=== PATIENT | male | born 1970 | race Caucasian/White ===

== ENCOUNTER 2017-05-20 17:34 | Inpatient (IN) | payer SELFPAY ==
[~2017-05-20] VITALS: Ht 177.8 cm; Wt 73.0 kg
[~2017-05-20 17:34] MED LIST: CLIN150 PO; NORC10TA2 PO; SULF-154 PO
[2017-05-20 17:36] VITALS: BP 127/73; PULSE 65; RESP 16; TEMP 97.4; O2SAT 100
[2017-05-20] MEDS ORDERED: SODIUM CHLOR 0.9% 1000 ML INJ 1,000 ML IV SCH (17:44)
[2017-05-20] MEDS ORDERED: SODIUM CHLORIDE 0.9% FLUSH 10 ML FLUSH IV FLUSH PRN ×2 (17:45→19:30)
[2017-05-20] MEDS ORDERED: MORPHINE SULFATE 8 MG/ML INJ IV PUSH ONE (17:45)
[2017-05-20] MEDS ORDERED: ONDANSETRON HCL 4 MG/2 ML VIAL IVP ONE (17:45)
--- NOTE | 2017-05-20 17:55 | PD ---
HPI Chief Complaint: Abdominal Pain Time Seen by Provider: 17:41 Travel History International Travel<30 days: No Contact w/Intl Traveler<30days: No Traveled to known affect area: No History of Present Illness HPI 47 yo M c/o abdominal pain for 24 hours. Timing constant. Pain is severe. It does not radiate. Multiple episodes vomiting and diarrhea reported, non-bloody. Pt unsure if febrile. Denies diaphoresis. No idiosyncratic food or drink. Pt denies similar prior episodes. PFSH Past Medical History Hx Anticoagulant Therapy: No Cancer: No Cardiovascular Problems: No High Cholesterol: No (DOESN'T KNOW) Diabetes: No Diminished Hearing: No Endocrine: No Genitourinary: No Immune Disorder: No Musculoskeletal: Yes (NECK/RT SHOULDER INJ (WC, OLD INJ)) Neurologic: No Psychiatric: No Reproductive: No Respiratory: No Immunizations Current: No Social History Alcohol Use: No Tobacco Use: Yes (1 ppd) Substance Use: No (HX OF MARIJUANA, 2015 LAST USE) Allergies-Medications (Allergen,Severity, Reaction): Coded Allergies: penicillin G (Unverified Allergy, Mild, UNKNOWN, 05/20/17) *MDRO Multi-Drug Resistant Organism (Unverified Adverse Reaction, Unknown , 05/20/17) MRSA hand 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 Reported Meds & Prescriptions Reported Meds & Active Scripts Active Reported Lortab (Hydrocodone-Acetaminophen) 10-325 Mg Tab 1 Tab PO Q6H PRN Review of Systems Except as stated in HPI: all other systems reviewed are Neg Gastrointestinal: Positive: Nausea, Vomiting, Diarrhea, Abdominal Pain Physical Exam Narrative GENERAL: 47 yo M, moderate distress 2/2 pain SKIN: Warm and dry. HEAD: Atraumatic. Normocephalic. EYES: Pupils equal and round. No scleral icterus. No injection or drainage. ENT: Poor dentition. No nasal bleeding or discharge. Mucous membranes pink and moist. NECK: Trachea midline. No JVD. CARDIOVASCULAR: Regular rate and rhythm. RESPIRATORY: No accessory muscle use. Clear to auscultation. Breath sounds equal bilaterally. GASTROINTESTINAL: Diffuse TTP. Soft. MUSCULOSKELETAL: Extremities without clubbing, cyanosis, or edema. No obvious deformities. NEUROLOGICAL: Awake and alert. No obvious cranial nerve deficits. Motor grossly within normal limits. Five out of 5 muscle strength in the arms and legs. Normal speech. PSYCHIATRIC: Appropriate mood and affect; insight and judgment normal. Data Data Last Documented VS Vital Signs Date Time Temp Pulse Resp B/P (MAP) Pulse Ox O2 Delivery O2 Flow Rate FiO2 05/20/17 19:00 15 05/20/17 18:02 Room Air 05/20/17 17:36 97.4 65 127/73 (91) 100 VS reviewed Orders Orders Complete Blood Count With Diff (05/20/17 17:44) Comprehensive Metabolic Panel (05/20/17 17:44) Lipase (05/20/17 17:44) Lactic Acid (05/20/17 17:44) Urinalysis - C+S If Indicated (05/20/17 17:44) Ct Abd/Pel W Iv Contrast(Rout) (05/20/17:44) Iv Access Insert/Monitor (05/20/17:44) Ecg Monitoring (05/20/17:44) Oximetry (05/20/17 17:44) Ondansetron Inj (Zofran Inj) (05/20/17 17:45) Sodium Chlor 0.9% 1000 Ml Inj (Ns 1000 M (05/20/17 17:44) Sodium Chloride 0.9% Flush (Ns Flush) (05/20/17 17:45) Morphine Inj (Morphine Inj) (05/20/17 17:45) Iohexol 350 Inj (Omnipaque 350 Inj) (05/20/17 18:14) Ciprofloxacin 400 Mg Premix (Cipro 400 M (05/20/17 18:45) Metronidazole 500 Mg Inj (Flagyl 500 Mg (05/20/17 18:45) Sodium Chlor 0.9% 1000 Ml Inj (Ns 1000 M (05/20/17 19:00) Hydromorphone Pf Inj (Dilaudid Pf Inj) (05/20/17 19:00) Alcohol (Ethanol) (05/20/17 18:57) Drug Screen, Random Urine (05/20/17 18:57) Admit Order (Ed Use Only) (05/20/17 ) Non Profit Job Titles / Telemetry GALINDO.Q8H (05/20/17 19:16) Vital Signs (Adult) Q4H (05/20/17 19:16) Diet Npo (05/21/17 Breakfast) Activity Oob With Assistance (05/20/17 19:16) Notify Dr: Other (05/20/17 19:16) Ciprofloxacin 400 Mg Premix (Cipro 400 M (05/21/17 06:00) Metronidazole 500 Mg Inj (Flagyl 500 Mg (05/21/17 06:00) Admit To Inpatient (05/20/17 ) Vital Signs (Adult) Q4H (05/20/17:17) Activity Oob Ad Tiffanie (05/20/17:17) Intake + Output GALINDO.QSHIFT (05/20/17:17) Sodium Chlor 0.9% 1000 Ml Inj (Ns 1000 M (05/20/17 12:00) Sodium Chloride 0.9% Flush (Ns Flush) (05/20/17 19:30) Sodium Chloride 0.9% Flush (Ns Flush) (05/20/17 21:00) Ondansetron Inj (Zofran Inj) (05/20/17 19:30) Comprehensive Metabolic Panel (05/21/17 06:00) Complete Blood Count With Diff (05/21/17 06:00) Scd Bilateral/Knee High GALINDO.BID (05/20/17:17) Alexx Bilateral/Knee High GALINDO.QSHIFT (05/20/17 19:19) Acetaminophen (Tylenol) (05/20/17 19:30) Morphine Inj (Morphine Inj) (05/20/17 19:30) Oxycodone (Roxicodone) (05/20/17 19:30) Docusate Sodium-Senna (Mary-Colace) (05/20/17 21:00) Magnesium Hydroxide Liq (Milk Of Magnesi (05/20/17 19:30) Sennosides (Senokot) (05/20/17 19:30) Bisacodyl Supp (Dulcolax Supp) (05/20/17 19:30) Lactulose Liq (Lactulose Liq) (05/20/17 19:30) Inpatient Certification (05/20/17 ) Labs Laboratory Tests Test 05/20/17 17:59 05/20/17 19:15 White Blood Count 17.7 TH/MM3 Red Blood Count 4.99 MIL/MM3 Hemoglobin 15.1 GM/DL Hematocrit 43.1 % Mean Corpuscular Volume 86.4 FL Mean Corpuscular Hemoglobin 30.2 PG Mean Corpuscular Hemoglobin Concent 35.0 % Red Cell Distribution Width 13.1 % Platelet Count 164 TH/MM3 Mean Platelet Volume 10.4 FL Neutrophils (%) (Auto) 83.9 % Lymphocytes (%) (Auto) 8.9 % Monocytes (%) (Auto) 4.1 % Eosinophils (%) (Auto) 0.2 % Basophils (%) (Auto) 2.9 % Neutrophils # (Auto) 14.9 TH/MM3 Lymphocytes # (Auto) 1.6 TH/MM3 Monocytes # (Auto) 0.7 TH/MM3 Eosinophils # (Auto) 0.0 TH/MM3 Basophils # (Auto) 0.5 TH/MM3 CBC Comment DIFF FINAL Differential Comment Blood Urea Nitrogen 12 MG/DL Creatinine 1.20 MG/DL Random Glucose 121 MG/DL Total Protein 7.1 GM/DL Albumin 3.4 GM/DL Calcium Level 9.0 MG/DL Alkaline Phosphatase 98 U/L Aspartate Amino Transf (AST/SGOT) 23 U/L Alanine Aminotransferase (ALT/SGPT) 20 U/L Total Bilirubin 1.6 MG/DL Sodium Level 136 MEQ/L Potassium Level 3.8 MEQ/L Chloride Level 103 MEQ/L Carbon Dioxide Level 21.9 MEQ/L Anion Gap 11 MEQ/L Estimat Glomerular Filtration Rate 65 ML/MIN Lactic Acid Level 3.0 mmol/L Lipase 108 U/L Ethyl Alcohol Level LESS THAN 3 MG/DL Urine Collection Type VOIDED Urine Color YELLOW Urine Turbidity CLEAR Urine pH 5.5 Urine Specific [place] GREATER THAN 1.035 Urine Protein TRACE mg/dL Urine Glucose (UA) NEG mg/dL Urine Ketones NEG mg/dL Urine Occult Blood TRACE Urine Nitrite NEG Urine Bilirubin NEG Urine Leukocyte Esterase NEG Urine WBC 0-2 /hpf Urine Squamous Epithelial Cells 0-2 /hpf Urine Mucus RARE /lpf Microscopic Urinalysis Comment CULT NOT INDICATED Urine Opiates Screen POS Urine Barbiturates Screen NEG Urine Amphetamines Screen NEG Urine Benzodiazepines Screen NEG Urine Cocaine Screen POS Urine Cannabinoids Screen POS [facility] Medical Decision Making Medical Screen Exam Complete: Yes Emergency Medical Condition: Yes Medical Record Reviewed: Yes Differential Diagnosis Constipation, Gastritis, Acute Cholecystitis, Biliary Colic, Pancreatitis, MERCADO , Hepatitis, Bowel Obstruction, Cystitis, Mesenteric Ischemia, AAA, Appendicitis , Renal Stone/Hydronephrosis, GERD, perforated viscous Narrative Course CBC & BMP Diagram 05/20/17 17:59 Total Protein 7.1, Albumin 3.4, Calcium Level 9.0, Alkaline Phosphatase 98, Aspartate Amino Transf (AST/SGOT) 23, Alanine Aminotransferase (ALT/SGPT) 20, Total Bilirubin 1.6 H Lipase normal Latic acid 3.0 Last 24 hours Impressions Abdomen/Pelvis CT 05/20/17 1744 Signed Impressions: Service Date/Time: Saturday, May 20, 2017 18:09 - CONCLUSION: Inflammatory change in the right lower quadrant adjacent to the cecum which probably involves the distal small bowel ileum with the appendix not with assurety seen as a separate entity. Differential is that of appendicitis versus small bowel disease such as regional enteritis Angelo Cheema MD 8mg morphine, 4 zofran, 1L NS with improvement cipro/flagyl orderd approx 90 minutes after arrival 1mg hydromorphone added along with second liter NS d/w Dr Sanz of general surgery who requests NPO, IVF, transfer to [facility], medicine admit 2/2 chronic pain, continue cipro/flagyl, possible surgery if no improvement 702PM pt in pain, abdomen TTP diffusely, VS normal d/w Dr Awad for [facility]. Diagnosis Primary Impression: Small bowel disease Additional Impression: Intestinal infection Admitting Information Admitting Physician Requests: Admit Jamel Mayer MD May 20, 2017 17:55
[2017-05-20 18:08] LABS: AUTOMATED NEUTROPHIL # 14.9 TH/MM3 (1.8-7.7); BASOPHIL # 0.5 TH/MM3 (0-0.2); BASOPHIL % 2.9 % (0.0-2.0); EOSINOPHIL % 0.2 % (0.0-4.0); HEMATOCRIT 43.1 % (39.0-51.0); LYMPH % 8.9 % (9.0-44.0); LYMPHOCYTE # 1.6 TH/MM3 (1.0-4.8); MEAN CELL VOLUME 86.4 FL (80.0-100.0); MEAN CORPUSCULAR HEMOGLOBIN 30.2 PG (27.0-34.0); MONO % 4.1 % (0.0-8.0); NEUT % 83.9 % (16.0-70.0); PLATELET COUNT 164 TH/MM3 (150-450); RED BLOOD COUNT 4.99 MIL/MM3 (4.50-5.90); RED CELL DISTRIBUTION WIDTH 13.1 % (11.6-17.2); WHITE BLOOD COUNT 17.7 TH/MM3 (4.0-11.0)
[2017-05-20] MEDS ORDERED: IOHEXOL 350 MG/ML 10 ML VIAL (for RAD DIAG) IVCONTRAST ONE (18:14)
[2017-05-20 18:23] LABS: CHLORIDE 103 MEQ/L (98-107); POTASSIUM 3.8 MEQ/L (3.5-5.1); SODIUM (NA) 136 MEQ/L (136-145)
--- NOTE | 2017-05-20 18:26 | RADRPT ---
EXAM DATE/TIME: 05/20/2017 18:09 [place] COMPARISON: No previous studies available for comparison. INDICATIONS : Lower abdominal pain, nausea, vomiting and diarrhea. IV CONTRAST: 85 cc Omnipaque 350 (iohexol) IV ORAL CONTRAST: No oral contrast ingested. RADIATION DOSE: 6.16 CTDIvol (mGy) MEDICAL HISTORY : None SURGICAL HISTORY : None. ENCOUNTER: Initial ACUITY: 1 day PAIN SCALE: 10/10 LOCATION: Bilateral lower quadrant TECHNIQUE: Volumetric scanning of the abdomen and pelvis was performed. Using automated exposure control and ad justment of the mA and/or kV according to patient size, radiation dose was kept as low as reasonably achievable to obtain optimal diagnostic quality images. DICOM format image data is available electro nically for review and comparison. FINDINGS: LOWER LUNGS: The visualized lower lungs are clear. Small retrocardiac hiatal hernia. LIVER: Homogeneous density without lesion. There is no dilation of the biliary tree. No calcified gallston es. Gallbladder seen this luminal structure without wall thickening SPLEEN: Normal size without lesion. PANCREAS: Within normal limits. KIDNEYS: Normal in size and shape. There is no stone or hydronephrosis. 1.9 cm cyst posterior cortex right ki dney ADRENAL GLANDS: Within normal limits. VASCULAR: There is no aortic aneurysm. BOWEL/MESENTERY: The stomach, small bowel, and colon demonstrate no acute abnormality. There is no free intraperitone al air or fluid there is inflammatory change in the right lower quadrant adjacent to the cecum involv ing the distal small bowel with the appendix not being seen as a separate entity.. ABDOMINAL WALL: Within normal limits. RETROPERITONEUM: There is no lymphadenopathy. BLADDER: No wall thickening or mass. REPRODUCTIVE: Within normal limits. INGUINAL: There is no lymphadenopathy or hernia. MUSCULOSKELETAL: Within normal limits for patient age. CONCLUSION: Inflammatory change in the right lower quadrant adjacent to the cecum which probably involves the dis hari small bowel ileum with the appendix not with assurety seen as a separate entity. Differential is that of appendicitis versus small bowel disease such as regional enteritis Angleo Cheema MD on May 20, 2017 at 18:20 Board Certified Radiologist. This report was verified electronically.
[2017-05-20 18:27] LABS: ANION GAP 11 MEQ/L (5-15); BICARBONATE 21.9 MEQ/L (21.0-32.0); BLOOD UREA NITROGEN 12 MG/DL (7-18)
[2017-05-20 18:30] LABS: ALT (GPT) 20 U/L (12-78); AST (GOT) 23 U/L (15-37); GLOMERULAR FILTRATION RATE 65 ML/MIN (>89)
[2017-05-20 18:31] LABS: TOTAL BILIRUBIN ADULT 1.6 MG/DL (0.2-1.0)
[2017-05-20 18:33] LABS: ALKALINE PHOSPHATASE 98 U/L (45-117)
[2017-05-20 18:37] LABS: HEMO FLAGS DIFF FINAL
[2017-05-20] MEDS ORDERED: CIPROFLOXACIN 400 MG PREMIX 200 ML IV ONE (18:45)
[2017-05-20] MEDS ORDERED: metroNIDAZOLE 500 MG INJ 100 ML IV ONE (18:45)
[2017-05-20] MEDS ORDERED: HYDROmorphone HCL PF 1 MG/ML VIAL IV PUSH ONE (19:00)
[2017-05-20] MEDS ORDERED: SODIUM CHLOR 0.9% 1000 ML INJ 1,000 ML IV ONE (19:00)
[2017-05-20] MEDS ORDERED: HYDR-3535 PO (19:02)
[2017-05-20 19:25] LABS: GLUCOSE,URINE NEG (NEG); KETONE, URINE NEG (NEG); NITRITE,URINE NEG (NEG); PH, URINE 5.5 (5.0-8.5)
[2017-05-20 19:26] LABS: BLOOD, URINE TRACE (NEG)
[2017-05-20 19:29] LABS: COMMENT (UR) CULT NOT INDICATED; CULTURE IF INDICATED CULT NOT INDICATED; METHOD OF COLLECTION VOIDED; MUCUS URINE RARE /lpf (OCC); SQUAMOUS EPITHELIAL CELL URINE 0-2 /hpf (0-5); URINE COLOR YELLOW (YELLW/STRAW); WBC, URINE 0-2 /hpf (0-5)
[2017-05-20] MEDS ORDERED: ONDANSETRON HCL 4 MG/2 ML VIAL IVP PRN (19:30)
[2017-05-20] MEDS ORDERED: ACETAMINOPHEN 325 MG TAB PO PRN (19:30)
[2017-05-20] MEDS ORDERED: MAGNESIUM HYDROXIDE SUSP 30 ML CUP PO PRN (19:30)
[2017-05-20] MEDS ORDERED: LACTULOSE SYRUP 20 GM/30 ML CUP PO PRN (19:30)
[2017-05-20] MEDS ORDERED: SENNOSIDES 8.6 MG TAB PO PRN (19:30)
[2017-05-20] MEDS ORDERED: BISACODYL 10 MG SUPP RECTAL PRN (19:30)
[2017-05-20 20:47] VITALS: BP 116/69; TEMP 98.5
[2017-05-20 21:39] VITALS: BP 116/67; PULSE 58; RESP 15; TEMP 98.6; O2SAT 99
[2017-05-20 22:19] VITALS: BP 130/69; PULSE 85; RESP 20; TEMP 99; O2SAT 95
[2017-05-20] MEDS: MORPHINE SULFATE 4 MG/ML INJ IV PUSH PRN (22:52)
[2017-05-20] MEDS: SODIUM CHLOR 0.9% 1000 ML INJ 1,000 ML IV SCH (22:53)
[2017-05-20] MEDS: SODIUM CHLORIDE 0.9% FLUSH 10 ML FLUSH IV FLUSH SCH (23:04)
[2017-05-20] MEDS: DOCUSATE SODIUM 50 MG/SENNA 8.6 MG TAB PO SCH (23:05)
[2017-05-21] VITALS (7 sets, daily range): BP systolic 97–117; BP diastolic 59–71; PULSE 66–90; RESP 16–20; TEMP 96.9–100.1; O2SAT 93–96
[2017-05-21] MEDS ORDERED: ACETAMINOPHEN 650 MG SUPP RECTAL PRN (01:45)
--- NOTE | 2017-05-21 01:53 | HHI.HP ---
HPI Service [facility] Hospitalists . Primary Care Physician Tona Lockhart MD . Admission Diagnosis Small Bowel Infection vs appendicitis; N/V/D . Diagnoses: (1) Nausea & vomiting (2) Diarrhea (3) Abdominal pain (4) Appendicitis (5) Enteritis Chief Complaint: abdominal pain, nausea, vomiting, and diarrhea Travel History International Travel<30 Days: No Contact w/Intl Traveler <30 Da: No Traveled to Known Affected Are: No History of Present Illness 47 y/o male with a history of chronic neck, shoulder and lower back pain secondary to a work-related injury who presented to the ED for evaluation of severe abdominal pain accompanied by nausea, vomiting, and diarrhea. The patient is transferred from [place] ED for surgical evaluation (Dr. Sanz discussed case with ED physician) after an ABD/PELVIS CT showed inflammatory changes of the right lower quadrant adjacent to the cecum probably involving distal small bowel ileum with the appendix not seen as a separate entity with any certainty. The patient is seen in his hospital room. He reports his symptoms began on , 05/19/2017 with severe generalized abdominal pain followed by nausea, vomiting, and diarrhea with at least 5-6 episode of vomiting and 5-6 episodes of diarrhea per day since. He denies any hematochezia, melena, hematemesis, or black emesis. He reports having chills but denies any recorded fevers. He has been experiencing some dizziness as well. He denies chest pain, shortness of breath, palpitations, or syncope. The PRN morphine given here at the hospital has helped with his pain. He is currently rating the pain as a 6 out of 10 located in the lower abdominal right and left quadrants that is worse with light palpation. Review of Systems Except as stated in HPI: all other systems reviewed are Neg Past Family Social History Past Medical History Chronic pain in shoulder, neck, and lower back. He takes [place] one tablet per day for the symptoms. Denies hypertension, diabetes mellitus, coronary artery disease, myocardial infarction, COPD, asthma, liver problems, kidney problems, DVT, PE, CVA, seizures, thyroid problems, or cancers. . Past Surgical History Denies any prior surgeries . Reported Medications Reported Meds & Active Scripts Active Reported Lortab (Hydrocodone-Acetaminophen) 10-325 Mg Tab 1 Tab PO Q6H PRN . Allergies: Coded Allergies: penicillin G (Unverified Allergy, Mild, UNKNOWN, 05/20/17) *MDRO Multi-Drug Resistant Organism (Unverified Adverse Reaction, Unknown , 05/20/17) MRSA hand 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 Active Ordered Medications Current Medications Ondansetron HCl (Zofran Inj) 4 mg ONCE ONCE IVP Last administered on 17:50; Start 05/20/17 at 17:45; Stop 05/20/17 at 17:47; Status DC Sodium Chloride 1,000 ml @ 1,000 mls/hr Q1H IV Last administered on 17:54; Start 05/20/17 at 17:44; Stop 05/20/17 at 18:43; Status DC Sodium Chloride (NS Flush) 2 ml UNSCH PRN IV FLUSH FLUSH AFTER USING IV ACCESS Last administered on 05/20/17 17:54; Start 05/20/17 at 17:45; Stop 05/20/17 at 19:29; Status DC Morphine Sulfate (Morphine Inj) 8 mg ONCE ONCE IV PUSH Last administered on 17:54; Start 05/20/17 at 17:45; Stop 05/20/17 at 17:47; Status DC Iohexol (Omnipaque 350 Inj) 85 ml STK-MED ONCE IVCONTRAST Last administered on 05/20/17 18:14; Start 05/20/17 at 18:14; Stop 05/20/17 at 18:15; Status DC Ciprofloxacin/ Dextrose 200 ml @ 200 mls/hr ONCE ONCE IV Last administered on 05/20/17 19:16; Start 05/20/17 at 18:45; Stop 05/20/17 at 19:44; Status DC Metronidazole 100 ml @ 100 mls/hr ONCE ONCE IV Last administered on 19:17; Start 05/20/17 at 18:45; Stop 05/20/17 at 19:44; Status DC Sodium Chloride 1,000 ml @ 999 mls/hr BOLUS ONCE IV Last administered on 19:12; Start 05/20/17 at 19:00; Stop 05/20/17 at 20:00; Status DC Hydromorphone HCl (Dilaudid Pf Inj) 1 mg ONCE ONCE IV PUSH Last administered on 05/20/17 19:14; Start 05/20/17 at 19:00; Stop 05/20/17 at 19:01; Status DC Ciprofloxacin/ Dextrose 200 ml @ 200 mls/hr Q12H IV ; Start 05/21/17 at 06:00 Metronidazole 100 ml @ 100 mls/hr Q8H IV ; Start 05/21/17 at 06:00 Sodium Chloride 1,000 ml @ 150 mls/hr Q6H40M IV Last administered on 22:53; Start 05/20/17 at 12:00 Sodium Chloride (NS Flush) 2 ml UNSCH PRN IV FLUSH FLUSH AFTER USING IV ACCESS Last administered on 05/21/17 02:00; Start 05/20/17 at 19:30 Sodium Chloride (NS Flush) 2 ml BID IV FLUSH Last administered on 05/20/17 23 :04; Start 05/20/17 at 21:00 Ondansetron HCl (Zofran Inj) 4 mg Q6H PRN IVP NAUSEA OR VOMITING; Start at 19:30 Acetaminophen (Tylenol) 650 mg Q6H PRN PO FEVER/PAIN SCALE 1 TO 2; Start 05/20 at 19:30 Morphine Sulfate (Morphine Inj) 2 mg Q3H PRN IV PUSH Pain 6-10 Last administered on 05/21/17 01:59; Start 05/20/17 at 19:30 Oxycodone HCl (Roxicodone) 5 mg Q4H PRN PO PAIN SCALE 3 TO 5; Start 05/20/17 at 19:30 Senna/Docusate Sodium (Mary-Colace) 1 tab BID PO Last administered on 23:05; Start 05/20/17 at 21:00 Magnesium Hydroxide (Milk Of Magnesia Liq) 30 ml Q12H PRN PO Mild constipation ; Start 05/20/17 at 19:30 Sennosides (Senokot) 17.2 mg Q12H PRN PO Moderate constipation; Start at 19:30 Bisacodyl (Dulcolax Supp) 10 mg DAILY PRN RECTAL SEVERE CONSITIPATION; Start 05/20/17 at 19:30 Lactulose (Lactulose Liq) 30 ml DAILY PRN PO SEVERE CONSITIPATION; Start 05/20 at 19:30 Influenza Virus Vaccine (Flu (Quadrivalent) Vaccine Inj) 0.5 ml ONCE ONCE IM ; Start 05/22/17 at 10:00; Stop 05/22/17 at 10:01 Acetaminophen (Tylenol Supp) 650 mg ONCE PRN RECTAL TEMP > 100.4 while npo; Start 05/21/17 at 01:45; Stop 05/21/17 at 07:30 . Family History He has 2 brothers with diabetes mellitus A brother who had a CVA Mother from complications related to pancreatitis . Social History Tobacco: Smokes 1 pack per day Alcohol: Former alcohol abuser; has not had an alcoholic beverage and 8-1/2 years Illicit drugs: Smokes marijuana occasionally but denies any history of IV drug abuse or cocaine abuse . Physical Exam Vital Signs Vital Signs Date Time Temp Pulse Resp B/P (MAP) Pulse Ox O2 Delivery O2 Flow Rate FiO2 05/21/17 01:42 100.1 88 16 115/67 (83) 93 05/20/17 22:19 99.0 85 20 130/69 (89) 95 05/20/17 21:39 98.6 58 15 116/67 (83) 99 05/20/17 20:47 98.5 82 14 116/69 (85) 99 05/20/17 20:30 14 05/20/17 19:00 15 05/20/17 18:02 Room Air 05/20/17 17:36 97.4 65 16 127/73 (91) 100 Physical Exam GENERAL: This is a male in no apparent distress who appears older than stated age. SKIN: No rashes. Skin quit warm to touch - requested nurse to check patient's temp HEAD: Atraumatic. Normocephalic. EYES: No scleral icterus. No injection or drainage. ENT: Nose without bleeding, purulent drainage. Airway patent. NECK: Trachea midline. No JVD. CARDIOVASCULAR: Regular rate and rhythm without murmurs, gallops, or rubs. RESPIRATORY: Breath sounds with diminished air exchange, equal bilaterally. No wheezes, rales, or rhonchi. GASTROINTESTINAL: Hyperactive bowel sounds; abdomen soft, tender to light palpation in lower abdomen, nondistended. No guarding. MUSCULOSKELETAL: Extremities without clubbing, cyanosis, or edema. No calf tenderness. NEUROLOGICAL: Awake and alert. Motor and sensory grossly within normal limits. Normal speech. . Laboratory Laboratory Tests Test 05/20/17 17:59 05/20/17 19:15 White Blood Count 17.7 Red Blood Count 4.99 Hemoglobin 15.1 Hematocrit 43.1 Mean Corpuscular Volume 86.4 Mean Corpuscular Hemoglobin 30.2 Mean Corpuscular Hemoglobin Concent 35.0 Red Cell Distribution Width 13.1 Platelet Count 164 Mean Platelet Volume 10.4 Neutrophils (%) (Auto) 83.9 Lymphocytes (%) (Auto) 8.9 Monocytes (%) (Auto) 4.1 Eosinophils (%) (Auto) 0.2 Basophils (%) (Auto) 2.9 Neutrophils # (Auto) 14.9 Lymphocytes # (Auto) 1.6 Monocytes # (Auto) 0.7 Eosinophils # (Auto) 0.0 Basophils # (Auto) 0.5 CBC Comment DIFF FINAL Differential Comment Blood Urea Nitrogen 12 Creatinine 1.20 Random Glucose 121 Total Protein 7.1 Albumin 3.4 Calcium Level 9.0 Alkaline Phosphatase 98 Aspartate Amino Transf (AST/SGOT) 23 Alanine Aminotransferase (ALT/SGPT) 20 Total Bilirubin 1.6 Sodium Level 136 Potassium Level 3.8 Chloride Level 103 Carbon Dioxide Level 21.9 Anion Gap 11 Estimat Glomerular Filtration Rate 65 Lactic Acid Level 3.0 Lipase 108 Ethyl Alcohol Level LESS THAN 3 Urine Collection Type VOIDED Urine Color YELLOW Urine Turbidity CLEAR Urine pH 5.5 Urine Specific [place] GREATER THAN 1.035 Urine Protein TRACE Urine Glucose (UA) NEG Urine Ketones NEG Urine Occult Blood TRACE Urine Nitrite NEG Urine Bilirubin NEG Urine Leukocyte Esterase NEG Urine WBC 0-2 Urine Squamous Epithelial Cells 0-2 Urine Mucus RARE Microscopic Urinalysis Comment CULT NOT INDICATED Urine Opiates Screen POS Urine Barbiturates Screen NEG Urine Amphetamines Screen NEG Urine Benzodiazepines Screen NEG Urine Cocaine Screen POS Urine Cannabinoids Screen POS Result Diagram: 05/20/17 [id number] Imaging Last Impressions Abdomen/Pelvis CT 05/20/17 282 Signed Impressions: Service Date/Time: Saturday, May 20, 2017 18:09 - CONCLUSION: Inflammatory change in the right lower quadrant adjacent to the cecum which probably involves the distal small bowel ileum with the appendix not with assurety seen as a separate entity. Differential is that of appendicitis versus small bowel disease such as regional enteritis Angelo Cheema MD . Caprini VTE Risk Assessment Caprini VTE Risk Assessment: Mod/High Risk (score >= 2) Caprini Risk Assessment Model Point Value = 1 Point Value = 2 Point Value = 3 Point Value = 5 Age 41-60 Minor surgery BMI > 25 kg/m2 Swollen legs Varicose veins or History of unexplained or recurrent spontaneous Oral contraceptives or hormone replacement Sepsis (< 1 month) Serious lung disease, including pneumonia (< 1 month) Abnormal pulmonary function Acute myocardial infarction Congestive heart failure (< 1 month) History of inflammatory bowel disease Medical patient at bed rest Age 61-74 Arthroscopic surgery Major open surgery (> 45 min) Laparoscopic surgery (> 45 min) Malignancy Confined to bed (> 72 hours) Immobilizing plaster cast Central venous access Age >= 75 History of VTE Family history of VTE Factor V Leiden Prothrombin [id number] Lupus anticoagulant Anticardiolipin antibodies Elevated serum homocysteine Heparin-induced thrombocytopenia Other congenital or acquired thrombophilia Stroke (< 1 month) Elective arthroplasty Hip, pelvis, or leg fracture Acute spinal cord injury (< 1 month) Prophylaxis Regimen Total Risk Factor Score Risk Level Prophylaxis Regimen 0-1 Low Early ambulation 2 Moderate Order ONE of the following: *Sequential Compression Device (SCD) *Heparin 5000 units SQ BID 3-4 Higher Order ONE of the following medications: *Heparin 5000 units SQ TID *Enoxaparin/Lovenox 40 mg SQ daily (WT < 150 kg, CrCl > 30 mL/min) *Enoxaparin/Lovenox 30 mg SQ daily (WT < 150 kg, CrCl > 10-29 mL/min) *Enoxaparin/Lovenox 30 mg SQ BID (WT < 150 kg, CrCl > 30 mL/min) AND/OR *Sequential Compression Device (SCD) 5 or more Highest Order ONE of the following medications: *Heparin 5000 units SQ TID (Preferred with Epidurals) *Enoxaparin/Lovenox 40 mg SQ daily (WT < 150 kg, CrCl > 30 mL/min) *Enoxaparin/Lovenox 30 mg SQ daily (WT < 150 kg, CrCl > 10-29 mL/min) *Enoxaparin/Lovenox 30 mg SQ BID (WT < 150 kg, CrCl > 30 mL/min) AND *Sequential Compression Device (SCD) Assessment and Plan Problem List: (1) Nausea & vomiting ICD Code: R11.2 - Nausea with vomiting, unspecified (2) Abdominal pain ICD Code: R10.9 - Unspecified abdominal pain (3) Diarrhea ICD Code: R19.7 - Diarrhea, unspecified (4) Appendicitis ICD Code: K37 - Unspecified appendicitis (5) Enteritis ICD Code: K52.9 - Noninfective gastroenteritis and colitis, unspecified Assessment and Plan 47 y/o male with a history of chronic neck, shoulder and lower back pain secondary to a work-related injury who presented to the ED on 05/20/2017 for evaluation of severe abdominal pain accompanied by nausea, vomiting, and diarrhea. The patient was transferred from [place] ED for surgical evaluation after an ABD/PELVIS CT showed inflammatory changes of the right lower quadrant adjacent to the cecum probably involving distal small bowel ileum with the appendix not seen as a separate entity with any certainty. Nausea, Vomiting Diarrhea Abdominal Pain - WBC 17.7 with neutrophilia; lactic acid 3.0 (s/p fluid bolus rehydration in ED with NS total of 2 liters bolused) - Antibiotics for likely infection: Cipro 400 mg q12h and Metronidazole 500 mg q8h IV - For Pain: Morphine 2 mg IV q3h for pain 6-10 and oxycodone 5 mg every 4 hours by mouth when necessary pain 3-5 - IV fluid hydration with normal saline at 150 cc per hour - Monitor vital signs every 4 hours Enteritis vs Appendicitis - general surgeon, Dr. Sanz consulted - assistance appreciated - possible surgery in a.m.; patient NPO DVT prophylaxis - SCDs/TEDs . Discussed Condition With Dr. Awad, patient, and RN . Physician Certification 2 Midnight Certification Type: Admission for Inpatient Services Order for Inpatient Services The services are ordered in accordance with Medicare regulations or non- Medicare payer requirements, as applicable. In the case of services not specified as inpatient-only, they are appropriately provided as inpatient services in accordance with the 2-midnight benchmark. Estimated LOS (days): 3 days is the estimated time the patient will need to remain in the hospital, assuming treatment plan goals are met and no additional complications. Post-Hospital Plan: Fatoumata Pineda May 21, 2017 01:53
[2017-05-21] MEDS: MORPHINE SULFATE 4 MG/ML INJ IV PUSH PRN ×3 (01:59→20:53)
[2017-05-21] MEDS: SODIUM CHLOR 0.9% 1000 ML INJ 1,000 ML IV SCH ×4 (04:27→17:42)
[2017-05-21] MEDS: CIPROFLOXACIN 400 MG PREMIX 200 ML IV SCH ×2 (04:28→17:40)
[2017-05-21] MEDS: metroNIDAZOLE 500 MG INJ 100 ML IV SCH ×3 (04:29→20:49)
[2017-05-21] MEDS ORDERED: SODIUM CHLORID 0.9% 500 ML IV PRN (04:30)
[2017-05-21] MEDS ORDERED: LACTATED RINGER'S 1000 ML IV PRN (04:30)
[2017-05-21] MEDS ORDERED: CHLORHEXIDINE GLUCONATE 2 % 1 PACK (2 CLOTHS) TOPICAL PRN (04:30)
[2017-05-21] MEDS ORDERED: POVIDONE IODINE 5% (ANTISEPSIS KIT) 4 APPLICATIONS EACH NARE PRN (04:30)
[2017-05-21] MEDS ORDERED: ACETAMINOPHEN 1000 MG/100 ML 100 ML IV ONE (07:01)
[2017-05-21] MEDS ORDERED: BUPIVACAINE/EPINEPHRINE 0.25% 50 ML VIAL ONE (07:20)
[2017-05-21] MEDS: SODIUM CHLORIDE 0.9% FLUSH 10 ML FLUSH IV FLUSH SCH ×2 (07:25→20:46)
--- NOTE | 2017-05-21 08:02 | MB ---
cc: PAWAN LUNDBERG M.D., SRIKANTH MD DATE OF CONSULTATION: 05/21/2017 REASON FOR CONSULTATION: Lower abdominal pain with nausea, vomiting, diarrhea. HISTORY OF PRESENT ILLNESS The patient is a 47-year-old male with history of chronic neck and back and right shoulder pain who had a 1-day history of nausea, vomiting, diarrhea with generalized diffuse abdominal pain on that is now in the lower abdomen. The patient was seen late Tuesday evening in [place] emergency department. He underwent CT scan which demonstrated inflammatory process in the right lower quadrant with either ileitis versus appendicitis. The appendix was not well visualized. The patient is seen at this time for consideration for surgery. PAST MEDICAL HISTORY: Past medical history is significant for chronic neck and lower back pain. He uses Lortab 10 1-2 tablets a day to manage his pain. He denies any problems with other illnesses including diabetes, hypertension, coronary artery disease, Chronic obstructive pulmonary disease or asthma. MEDICATIONS: Only medication includes Lortab 10 every 6 hours as needed. 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 He was treated at that time with surgical procedure by Dr. Amos. SOCIAL HISTORY Significant for one-pack per day smoking history. He has formal alcohol abuse but has not had any alcoholic beverages in the last eight and half years. He smokes marijuana occasionally but denies IV drug use or cocaine use. PHYSICAL EXAMINATION: IN GENERAL: Physical exam reveals a male who is uncomfortable. VITAL SIGNS: Blood pressure 117/66, pulse 90, respirations 20, temperature 99.8. The patient had a T-max of 100.1 at 1:42 this morning. HEAD, EYES, EARS, NOSE, AND THROAT: Sclerae anicteric. Pupils reactive. NECK: Neck is supple. CHEST: Clear to auscultation. CARDIOVASCULAR SYSTEM: Cardiac exam reveals regular rate and rhythm without murmurs. ABDOMEN: Abdomen is soft. There is tenderness in the right lower quadrant with guarding and peritoneal signs. There is minimal to moderate pain in the left lower quadrant and moderate pain in the suprapubic region. There is minimal pain in the upper quadrants. EXTREMITIES: Pulses are present. NEUROLOGIC: Exam is grossly nonfocal. LABORATORY FINDINGS WBCs are 17.7 with platelet count of 164,000. Chemistries demonstrate BUN and creatinine of 12 and 1.2, total bilirubin is slightly increased at 1.6, lipase is normal at 108. The patient has received Cipro and Flagyl. CT scan demonstrates the saphenous inflammatory process in the right lower quadrant, appendix is not well visualized. ASSESSMENT Acute abdominal pain right lower quadrant. PLAN: The patient is agreeable to option of going to the operating room with laparoscopy and probable laparoscopic appendectomy. He understands that if there is a perforation or near perforation that he will require a [id number] hospital stay with IV antibiotics. He also understands that he is at risk for increased complications. I have discussed risks of surgery including but not limited to bleeding, infection, need for drainage, leakage, and possible need for bowel resection as well as a higher likelihood of an ileus with slow bowels and prolonged stay after surgery. I have also discussed with the patient that he will need to use the pain medicine he has at home and that we will not be writing for any additional narcotics due to his chronic tolerance. He is agreeable to all of the above. He will be taken to the operating room this morning for laparoscopic appendectomy, possible open appendectomy, possible bowel resection. MD MIC Livingston/johnna /6:47 AM /7:27 AM OTILIO
[2017-05-21] MEDS: DOCUSATE SODIUM 50 MG/SENNA 8.6 MG TAB PO SCH ×2 (09:00→20:46)
[2017-05-21] MEDS ORDERED: ACETAMINOPHEN/HYDROcodone 325 MG/10 MG TAB PO PRN (09:30)
--- NOTE | 2017-05-21 09:30 | HHI.PR ---
cc: Alphonso Sanz MD Immediate Post Op Note Procedure Date: May 21, 2017 Pre Op Diagnosis: Acute appendicitis Post Op Diagnosis: Perforated appendicitis Surgeon: Alphonso Sanz Survey Research Associate(s): Stacy Reed CFA Procedure: Laparoscopic appendectomy Complications: None Specimen(s) removed: Appendix to pathology Estimated blood loss: 50 ml Anesthesia: General Drains: JAJA IVF (1500 ml) Patient to: PACU Patient Condition: Good Date/Time of Procedure: SEE SURGICAL CARE RECORD Alphonso Sanz MD May 21, 2017 09:30
[2017-05-21] MEDS ORDERED: DO NOT ADM ANY ANTICOAGULANT DRUGS PRN (09:45)
[2017-05-21] MEDS ORDERED: NEOSTIGMINE 3 MG/3 ML SYR IV ONE (12:00)
[2017-05-21] MEDS ORDERED: PROPOFOL 200 MG/20 ML AMP IV ONE (12:00)
[2017-05-21] MEDS ORDERED: LIDOCAINE HCL 1% PF 5 ML AMPULE OTHER ONE (12:00)
[2017-05-21] MEDS ORDERED: LACTATED RINGER'S 1000 ML INJ 1,000 ML IV ONE (12:00)
[2017-05-21] MEDS ORDERED: PHENYLEPH/NS 1000 MCG/10 ML SYR IV ONE (12:00)
[2017-05-21] MEDS ORDERED: ONDANSETRON HCL 4 MG/2 ML VIAL IV PUSH ONE (12:00)
[2017-05-21] MEDS ORDERED: KETOROLAC TROMETHAMINE 30 MG/ML (IVP) VIAL IV PUSH ONE (12:00)
[2017-05-21] MEDS ORDERED: SUCCINYLCHOLINE CHLORIDE 100 MG/5 ML SYRINGE IV PUSH ONE (12:00)
[2017-05-21] MEDS ORDERED: MIDAZOLAM HCL 2 MG/2 ML VIAL IV ONE (12:00)
[2017-05-21] MEDS ORDERED: DEXAMETHASONE SOD PHOS 4 MG/ML VIAL IV ONE (12:00)
[2017-05-21] MEDS ORDERED: GLYCOPYRROLATE 1 MG/5 ML SYRINGE IV PUSH ONE (12:00)
[2017-05-21] MEDS ORDERED: ROCURONIUM INJ 50 MG/5 ML SYRINGE IV PUSH ONE (12:00)
[2017-05-21 12:14] LABS: AUTOMATED NEUTROPHIL # 12.2 TH/MM3 (1.8-7.7); BASOPHIL % 0.1 % (0.0-2.0); HEMATOCRIT 36.7 % (39.0-51.0); HEMO FLAGS DIFF FINAL; LYMPH % 2.4 % (9.0-44.0); LYMPHOCYTE # 0.3 TH/MM3 (1.0-4.8); MEAN CELL VOLUME 88.1 FL (80.0-100.0); MEAN CORPUSCULAR HEMOGLOBIN 29.8 PG (27.0-34.0); MEAN CORPUSCULAR HGB CONC 33.8 % (32.0-36.0); NEUT % 93.5 % (16.0-70.0); PLATELET COUNT 100 TH/MM3 (150-450); RED BLOOD COUNT 4.17 MIL/MM3 (4.50-5.90); RED CELL DISTRIBUTION WIDTH 14.3 % (11.6-17.2)
[2017-05-21 12:39] LABS: ALT (GPT) 13 U/L (12-78); ANION GAP 8 MEQ/L (5-15); AST (GOT) 15 U/L (15-37); BICARBONATE 24.3 MEQ/L (21.0-32.0); BLOOD UREA NITROGEN 10 MG/DL (7-18); CHLORIDE 105 MEQ/L (98-107); GLOMERULAR FILTRATION RATE 92 ML/MIN (>89); POTASSIUM 3.9 MEQ/L (3.5-5.1); SODIUM (NA) 137 MEQ/L (136-145)
[2017-05-21 12:42] LABS: ALKALINE PHOSPHATASE 56 U/L (45-117); TOTAL BILIRUBIN ADULT 2.1 MG/DL (0.2-1.0)
[2017-05-21] MEDS: ACETAMINOPHEN/HYDROcodone 325 MG/10 MG TAB PO PRN (14:10)
--- NOTE | 2017-05-21 15:51 | MP ---
cc: ALPHONSO SANZ M.D. DATE OF SURGERY: 05/21/2017. PREOPERATIVE DIAGNOSIS: Acute appendicitis POSTOPERATIVE DIAGNOSIS: Perforated appendicitis with abscess. OPERATIVE PROCEDURE PERFORMED: Laparoscopic appendectomy. ANESTHESIA General endotracheal SURGEON: Alphonso Sanz MD. ANESTHESIA: General endotracheal anesthesia. ESTIMATED BLOOD LOSS 50 mL. FLUIDS: 1500 mL crystalloid. COMPLICATIONS: None. DRAINS: Jesus-Bullock drain x1. SPECIMEN: Appendix to pathology. FINDINGS: Tip of the appendix perforated with a small amount of stool contained in the right lower quadrant. DESCRIPTION OF THE PROCEDURE IN DETAIL: The patient was taken to the operating room and placed on the operating table in the supine position. After an adequate level of general endotracheal anesthesia was achieved, the patient underwent straight catheterization and the abdomen shaved, prepped and draped. Time-out was taken confirming the correct patient, site, and procedure to be performed. Skin and subcutaneous tissue was infiltrated with local anesthetic and an incision made in the umbilicus and carried through the fascia sharply. The peritoneal cavity was entered uneventfully. A 12 mm balloon trocar was inserted and the balloon inflated. The patient's abdomen was insufflated and he was placed in Trendelenburg position. A 5-mm 30-degree laparoscope was inserted. Two 5-mm trocars were then placed with the first in the right lower quadrant and the second in the suprapubic region. Both entered the abdominal cavity under direct vision uneventfully. Omentum and bowel was seen to be adhered to the anterior abdominal wall and this was easily swept down. Purulent material was noted and this was cultured and sent for Gram stain and culture and sensitivity. The ileum was seen to be adhered to the omentum and this was then easily peeled away and freed up. Grossly inflamed appendix with perforated tip was noted with a small amount of stool in the right lower quadrant contained in a very small area. This was aspirated and no further spillage was noted. A window was created at the appendiceal/cecal junction and the mesoappendix then taken down with the harmonic scalpel. When this was completed, a 0-PDS Endoloop was placed over the appendix and cinched down at the base, which was not necrotic. The appendix was then divided 1 cm distal to this with the harmonic scalpel, placed into an EndoCatch device, and removed via the umbilical port while observing via the right lower quadrant 5-mm trocar site. The specimen was passed off the table. The laparoscope was once again placed into the umbilical port and copious irrigation was then utilized in the pelvis and right lower quadrant. All purulent material was irrigated and aspirated. When the abdomen appeared to be clean, a Jesus-Bullock drain was brought in via the suprapubic port and out via the right lower quadrant port site. The drain was placed near the appendiceal stump and extended down into the pelvis to the cul-de-sac. The drain was fixed to the skin with a 3-0 nylon suture. Insufflation was discontinued and both port sites were seen to be clean and dry during desufflation. The laparoscope and umbilical port were removed. The fascia was closed in the umbilicus with 0 Vicryl suture in a simple interrupted and gslzae-[id number] fashion. 4-0 Vicryl was used to close the inferior 5 mm trocar skin site and the umbilicus. A 4x4 was applied around the drain. The other two trocar sites were dressed with Steri-Strips. The patient was extubated and taken back to the recovery room in stable condition. He tolerated the procedure well. MD MIC Livingston/SHAHRAM /9:16 AM /3:42 PM OTILIO
--- NOTE | 2017-05-21 16:59 | EKG ---
Date Performed: 05/21/2017 Time Performed: 07:44:42 PTAGE: 47 years EKG: Sinus rhythm NORMAL ECG PREVIOUS TRACING : 04/16/2008 05.42 Compared to prior tracing no significant change DOCTOR: Yordy Rivers Interpretating Date/Time 05/21/2017 16:58:23
[2017-05-22] VITALS (8 sets, daily range): BP systolic 119–136; BP diastolic 72–85; PULSE 71–82; RESP 16–18; TEMP 96.6–99.5; O2SAT 92–96
[2017-05-22] MEDS: MORPHINE SULFATE 4 MG/ML INJ IV PUSH PRN ×5 (00:11→20:01)
[2017-05-22] MEDS: ACETAMINOPHEN/HYDROcodone 325 MG/10 MG TAB PO PRN ×2 (01:40→05:56)
[2017-05-22] MEDS: SODIUM CHLOR 0.9% 1000 ML INJ 1,000 ML IV SCH ×3 (03:41→19:59)
[2017-05-22] MEDS: CIPROFLOXACIN 400 MG PREMIX 200 ML IV SCH ×2 (03:43→17:52)
[2017-05-22] MEDS: metroNIDAZOLE 500 MG INJ 100 ML IV SCH ×3 (05:54→20:00)
--- NOTE | 2017-05-22 09:25 | HHI.PR ---
Subjective Remarks Patient in bed trying to eat some breakfast so far no nausea or vomiting. Has pain at the surgical site, however he feels improved after surgery yesterday, No n/v/d/c. denies chest pain or sob. Objective Vitals Vital Signs Date Time Temp Pulse Resp B/P (MAP) Pulse Ox O2 Delivery O2 Flow Rate FiO2 05/22/17 04:22 97.5 72 16 126/78 (94) 95 05/22/17 00:20 98.8 78 16 119/72 (88) 95 05/21/17 20:54 97.6 66 16 112/71 (85) 94 05/21/17 20:53 21 05/21/17 20:00 78 05/21/17 16:00 97.7 77 18 106/65 (79) 96 05/21/17 15:10 18 05/21/17 12:00 97.6 78 18 97/59 (72) 95 05/21/17 10:05 96.9 81 18 102/62 (75) 94 05/21/17 09:55 99.0 81 14 115/63 (80) 93 Room Air 05/21/17 09:45 81 14 115/63 (80) 93 Room Air 05/21/17 09:30 81 14 115/63 (80) 93 Room Air I/O 05/21/17 05/21/17 05/21/17 05/22/17 05/22/17 05/22/17 07:00 15:00 23:00 07:00 15:00 23:00 Intake Total 1050 ml 2800 ml 100 ml 1000 ml Output Total 260 ml 20 ml 550 ml Balance 1050 ml 2540 ml 80 ml 450 ml Intake Oral 0 ml 600 ml IV Total 1050 ml 700 ml 100 ml 1000 ml Other 1500 ml Output Urine Total 50 ml 500 ml Drainage Total 160 ml 20 ml 50 ml Estimated Blood Loss 50 ml # Voids 2 4 # Bowel Movements 0 0 Result Diagram: 05/21/17 1201 05/21/17 1201 Imaging Last Impressions Abdomen/Pelvis CT 05/20/17 7269 Signed Impressions: Service Date/Time: Saturday, May 20, 2017 18:09 - CONCLUSION: Inflammatory change in the right lower quadrant adjacent to the cecum which probably involves the distal small bowel ileum with the appendix not with assurety seen as a separate entity. Differential is that of appendicitis versus small bowel disease such as regional enteritis Angelo Cheema MD Objective Remarks GENERAL: This is a male in no apparent distress who appears older than stated age. CARDIOVASCULAR: Regular rate and rhythm without murmurs, gallops, or rubs. RESPIRATORY: Breath sounds with diminished air exchange, equal bilaterally. No wheezes, rales, or rhonchi. GASTROINTESTINAL: Hyperactive bowel sounds; abdomen soft, tender to light palpation in lower abdomen, dressing c/d/i, drain in place. Abd nondistended. No guarding. MUSCULOSKELETAL: Extremities without clubbing, cyanosis, or edema. No calf tenderness. NEUROLOGICAL: Awake and alert. Motor and sensory grossly within normal limits. Normal speech. A/P Problem List: (1) Nausea & vomiting ICD Code: R11.2 - Nausea with vomiting, unspecified (2) Abdominal pain ICD Code: R10.9 - Unspecified abdominal pain (3) Diarrhea ICD Code: R19.7 - Diarrhea, unspecified (4) Appendicitis ICD Code: K37 - Unspecified appendicitis (5) Enteritis ICD Code: K52.9 - Noninfective gastroenteritis and colitis, unspecified Assessment and Plan 47 y/o male with a history of chronic neck, shoulder and lower back pain secondary to a work-related injury who presented to the ED on 05/20/2017 for evaluation of severe abdominal pain accompanied by nausea, vomiting, and diarrhea. The patient was transferred from [facility] for surgical evaluation after an ABD/PELVIS CT showed inflammatory changes of the right lower quadrant adjacent to the cecum probably involving distal small bowel ileum with the appendix not seen as a separate entity with any certainty. Nausea, Vomiting. Diarrhea.Abdominal Pain 2/2 Perforated appendicitis s/p Laparoscopic appendectomy by Dr Sanz on 05/22/17 - WBC 17.7 with neutrophilia; lactic acid 3.0 (s/p fluid bolus rehydration in ED with NS total of 2 liters bolused) - Antibiotics for likely infection: Cipro 400 mg q12h and Metronidazole 500 mg q8h IV - For Pain: Morphine 2 mg IV q3h for pain 6-10 and oxycodone 5 mg every 4 hours by mouth when necessary pain 3-5 - IV fluid hydration with normal saline at 150 cc per hour - Monitor vital signs every 4 hours Enteritis - general surgeon, Dr. Sanz consulted - assistance appreciated s/p Laparoscopic appendectomy by Dr Sanz on 05/22/17 DVT prophylaxis - SCDs/TEDs Discussed Condition With Patient, nurse DC plan : DC when improved and cleared by surgery, has drain at this time, not ready for DC Melly Newsome MD May 22, 2017 09:25
[2017-05-22] MEDS ORDERED: INFLUENZA VIRUS VACCINE (QUADRIVALENT) 0.5 ML SYR IM ONE (10:00)
[2017-05-22] MEDS: DOCUSATE SODIUM 50 MG/SENNA 8.6 MG TAB PO SCH ×2 (10:32→20:00)
[2017-05-22] MEDS: SODIUM CHLORIDE 0.9% FLUSH 10 ML FLUSH IV FLUSH SCH ×2 (10:32→19:59)
--- NOTE | 2017-05-22 13:21 | HHI.PR ---
cc: Alphonso Sanz MD Subjective Subjective Notes Somewhat painful still, as expected. Small amount flatus, but burping as well. No nausea or emesis. Objective Vitals/I&O Vital Signs Date Time Temp Pulse Resp B/P (MAP) Pulse Ox O2 Delivery O2 Flow Rate FiO2 05/22/17 08:00 96.6 71 16 119/77 (91) 94 05/21/17 20:53 21 05/21/17 09:55 Room Air 05/21/17 09:12 2 Labs Date/Time Source Procedure Growth Status 05/21/17 08:23 Fluid Peritoneal Fluid Gram Stain - Final Resulted 05/21/17 08:23 Fluid Peritoneal Fluid Body Fluid Culture Pending Resulted Lungs: Clear Abdomen: Post-op tenderness Narrative Exam JAJA output serosanguinous, 230 ml last 24 hrs A/P Assessment and Plan POD #1 lap appendectomy Stable; WBC's decreasing Continue IV antibiotics until tolerating diet better. Keep on clears until bowel activity more normal Need to watch for postop ileus; he is at increased risk. Alphonso Sanz MD May 22, 2017 13:21
[2017-05-22] MEDS: PANTOPRAZOLE SOD 20 MG DELAYED RELEASE TAB PO SCH (13:30)
[2017-05-22] MEDS: ENOXAPARIN SODIUM 40 MG/0.4 ML SYRINGE SQ SCH (15:00)
[2017-05-23] VITALS (8 sets, daily range): BP systolic 111–128; BP diastolic 65–77; PULSE 66–77; RESP 16–18; TEMP 97.5–99.8; O2SAT 92–95
[2017-05-23] MEDS: SODIUM CHLOR 0.9% 1000 ML INJ 1,000 ML IV SCH (03:49)
[2017-05-23] MEDS: CIPROFLOXACIN 400 MG PREMIX 200 ML IV SCH (03:49)
[2017-05-23] MEDS: ACETAMINOPHEN/HYDROcodone 325 MG/10 MG TAB PO PRN ×4 (03:54→21:36)
[2017-05-23] MEDS: metroNIDAZOLE 500 MG INJ 100 ML IV SCH (05:54)
[2017-05-23 07:26] LABS: AUTOMATED NEUTROPHIL # 4.9 TH/MM3 (1.8-7.7); BASOPHIL % 0.2 % (0.0-2.0); EOSINOPHIL # 0.1 TH/MM3 (0-0.4); EOSINOPHIL % 1.2 % (0.0-4.0); HEMATOCRIT 32.5 % (39.0-51.0); LYMPH % 11.7 % (9.0-44.0); LYMPHOCYTE # 0.7 TH/MM3 (1.0-4.8); MEAN CELL VOLUME 88.1 FL (80.0-100.0); MONO % 4.7 % (0.0-8.0); NEUT % 82.2 % (16.0-70.0); PLATELET COUNT 89 TH/MM3 (150-450); RED BLOOD COUNT 3.69 MIL/MM3 (4.50-5.90); RED CELL DISTRIBUTION WIDTH 13.8 % (11.6-17.2)
[2017-05-23 07:30] LABS: HEMO FLAGS AUTO DIFF
[2017-05-23 07:51] LABS: POTASSIUM 3.2 MEQ/L (3.5-5.1)
[2017-05-23] MEDS ORDERED: POTASSIUM CHLOR 20 MEQ PREMIX 100 ML IV ONE (09:00)
[2017-05-23] MEDS: SODIUM CHLORIDE 0.9% FLUSH 10 ML FLUSH IV FLUSH SCH ×2 (09:19→21:00)
[2017-05-23] MEDS: PANTOPRAZOLE SOD 20 MG DELAYED RELEASE TAB PO SCH (09:19)
[2017-05-23] MEDS: DOCUSATE SODIUM 50 MG/SENNA 8.6 MG TAB PO SCH ×2 (09:19→21:00)
[2017-05-23 10:05] LABS: PLATELET ESTIMATE SMEAR LOW (NORMAL); PLATELET MORPHOLOGY NORMAL (NORMAL); SCAN/DIFF AUTO DIFF CONFIRMED
--- NOTE | 2017-05-23 12:53 | HHI.PR ---
cc: Alphonso Sanz MD Subjective Subjective Notes Much less pain Had a small bowel movement Objective Vitals/I&O Vital Signs Date Time Temp Pulse Resp B/P (MAP) Pulse Ox O2 Delivery O2 Flow Rate FiO2 05/23/17 12:00 97.7 66 16 116/69 (85) 92 05/23/17 09:40 Nasal Cannula 2.00 05/21/17 20:53 21 Labs Laboratory Tests Test 05/23/17 06:34 White Blood Count 6.0 Red Blood Count 3.69 Hemoglobin 11.1 Hematocrit 32.5 Mean Corpuscular Volume 88.1 Mean Corpuscular Hemoglobin 30.0 Mean Corpuscular Hemoglobin Concent 34.0 Red Cell Distribution Width 13.8 Platelet Count 89 Mean Platelet Volume 11.1 Neutrophils (%) (Auto) 82.2 Lymphocytes (%) (Auto) 11.7 Monocytes (%) (Auto) 4.7 Eosinophils (%) (Auto) 1.2 Basophils (%) (Auto) 0.2 Neutrophils # (Auto) 4.9 Lymphocytes # (Auto) 0.7 Monocytes # (Auto) 0.3 Eosinophils # (Auto) 0.1 Basophils # (Auto) 0.0 CBC Comment AUTO DIFF Differential Comment AUTO DIFF CONFIRMED Platelet Estimate LOW Platelet Morphology Comment NORMAL Blood Urea Nitrogen 6 Creatinine 0.83 Random Glucose 105 Calcium Level 7.8 Sodium Level 137 Potassium Level 3.2 Chloride Level 104 Carbon Dioxide Level 26.0 Anion Gap 7 Estimat Glomerular Filtration Rate 99 Date/Time Source Procedure Growth Status 05/21/17 08:23 Fluid Peritoneal Fluid Gram Stain - Final Complete 05/21/17 08:23 Body Fluid Culture - Final Escherichia Coli Complete Abdomen: Non-distended, Post-op tenderness Narrative Exam JAJA output serosanguinous, 110 ml last 24 hrs A/P Assessment and Plan POD #2 lap appendectomy Stable; WBC's decreasing Convert to PO antibiotics. Advance diet Still need to watch for postop ileus; he is at increased risk. Alphonso Sanz MD May 23, 2017 12:53
[2017-05-23] MEDS: ENOXAPARIN SODIUM 40 MG/0.4 ML SYRINGE SQ SCH (13:27)
[2017-05-23] MEDS: metroNIDAZOLE 500 MG TAB PO SCH ×2 (14:55→21:37)
--- NOTE | 2017-05-23 17:00 | HHI.PR ---
Subjective Remarks Doing well status post appendectomy. Decreasing output at drain. Plan is to discharge with drain in place following surgery. Objective Vital Signs Date Time Temp Pulse Resp B/P (MAP) Pulse Ox O2 Delivery O2 Flow Rate FiO2 05/23/17 12:00 97.7 66 16 116/69 (85) 92 05/23/17 09:40 93 Nasal Cannula 2.00 05/23/17 08:00 98.6 72 16 118/68 (85) 93 05/23/17 04:30 97.5 69 18 127/77 (94) 93 05/23/17 00:23 99.8 77 18 111/65 (80) 95 05/22/17 20:14 96 Nasal Cannula 2.00 05/22/17 20:02 77 05/22/17 20:00 97.9 80 18 128/75 (92) 92 I/O 05/22/17 05/22/17 05/22/17 05/23/17 05/23/17 05/23/17 07:00 15:00 23:00 07:00 15:00 23:00 Intake Total 1300 ml 1100 ml 2120 ml 1200 ml 100 ml Output Total 550 ml 83 ml 1205 ml Balance 750 ml 1100 ml 2037 ml -5 ml 100 ml Intake Oral 120 ml IV Total 1300 ml 1100 ml 2000 ml 1200 ml 100 ml Output Urine Total 500 ml 1175 ml Stool Total 3 ml Drainage Total 50 ml 80 ml 30 ml # Voids 2 # Bowel Movements 0 Result Diagram: 05/23/17 0634 05/23/17 1315 Objective Remarks GENERAL: NAD, A&Ox3 HEAD: Normocephalic. NECK: Supple, trachea midline. No lymphadenopathy. EYES: No scleral icterus. No injection or drainage. CARDIOVASCULAR: Regular rate and rhythm without murmurs, gallops, or rubs. RESPIRATORY: Breath sounds equal bilaterally. No accessory muscle use. GASTROINTESTINAL: Abdomen soft, nondistended. Mild tenderness postop. Drain in place with clear, straw-colored output. MUSCULOSKELETAL: No cyanosis, or edema. SKIN: Warm and dry. NEURO: No focal neurological deficitis. A/P Problem List: (1) Nausea & vomiting ICD Code: R11.2 - Nausea with vomiting, unspecified (2) Abdominal pain ICD Code: R10.9 - Unspecified abdominal pain (3) Appendicitis ICD Code: K37 - Unspecified appendicitis Assessment and Plan Assessment and Plan 47 y/o male admitted secondary to acute appendicitis with perforation Acute appendicitis Perforated appendicitis Enteritis Status post appendectomy on 05/22/17 Improving clinically Drain in place with decreasing output Continue Cipro and metronidazole Continue pain treatments by mouth DVT prophylaxis SCDs Discharge planning Possible discharge tomorrow with outpatient surgical follow-up Drain removal possible as an outpatient Jamel Genao MD May 23, 2017 17:00
[2017-05-23] MEDS: CIPROFLOXACIN 500 MG TAB PO SCH (21:37)
[2017-05-24] VITALS (9 sets, daily range): BP systolic 122–131; BP diastolic 70–80; PULSE 59–75; RESP 17–22; TEMP 96.8–97.7; O2SAT 91–97
[2017-05-24] MEDS: metroNIDAZOLE 500 MG TAB PO SCH ×3 (06:31→21:48)
[2017-05-24] MEDS: DOCUSATE SODIUM 50 MG/SENNA 8.6 MG TAB PO SCH ×2 (09:00→21:00)
[2017-05-24] MEDS: SODIUM CHLORIDE 0.9% FLUSH 10 ML FLUSH IV FLUSH SCH ×2 (09:00→21:51)
[2017-05-24] MEDS: CIPROFLOXACIN 500 MG TAB PO SCH ×2 (09:15→21:48)
[2017-05-24] MEDS: PANTOPRAZOLE SOD 20 MG DELAYED RELEASE TAB PO SCH (09:15)
[2017-05-24] MEDS: ENOXAPARIN SODIUM 40 MG/0.4 ML SYRINGE SQ SCH (15:00)
--- NOTE | 2017-05-24 15:58 | HHI.PR ---
Subjective Remarks Decreasing output at drain. Patient is feeling well without signs of weakness. Diarrhea reported today. Objective Vital Signs Date Time Temp Pulse Resp B/P (MAP) Pulse Ox O2 Delivery O2 Flow Rate FiO2 05/24/17 12:00 97.7 68 17 124/73 (90) 94 05/24/17 09:03 94 Nasal Cannula 2.00 05/24/17 08:00 97.5 59 18 131/73 (92) 95 05/24/17 04:30 97.7 60 18 122/72 (89) 93 05/24/17 01:49 75 05/24/17 00:10 97.4 60 18 129/70 (89) 91 05/23/17 20:16 98.9 70 16 128/71 (90) 93 05/23/17 17:52 93 Nasal Cannula 2.00 05/23/17 16:00 97.9 74 16 127/74 (91) 93 I/O 05/23/17 05/23/17 05/23/17 05/24/17 05/24/17 05/24/17 07:00 15:00 23:00 07:00 15:00 23:00 Intake Total 1200 ml 940 ml Output Total 1205 ml 575 ml 50 ml 20 ml Balance -5 ml 365 ml -50 ml -20 ml Intake Oral 840 ml IV Total 1200 ml 100 ml Output Urine Total 1175 ml 575 ml Drainage Total 30 ml 50 ml 20 ml Result Diagram: 05/23/17 0634 05/23/17 1315 Objective Remarks GENERAL: NAD, A&Ox3 HEAD: Normocephalic. NECK: Supple, trachea midline. No lymphadenopathy. EYES: No scleral icterus. No injection or drainage. CARDIOVASCULAR: Regular rate and rhythm without murmurs, gallops, or rubs. RESPIRATORY: Breath sounds equal bilaterally. No accessory muscle use. GASTROINTESTINAL: Abdomen soft, nondistended. Mild tenderness postop. Drain in place with clear, straw-colored output. MUSCULOSKELETAL: No cyanosis, or edema. SKIN: Warm and dry. NEURO: No focal neurological deficitis. A/P Problem List: (1) Nausea & vomiting ICD Code: R11.2 - Nausea with vomiting, unspecified (2) Abdominal pain ICD Code: R10.9 - Unspecified abdominal pain (3) Appendicitis ICD Code: K37 - Unspecified appendicitis Assessment and Plan Assessment and Plan 47 y/o male admitted secondary to acute appendicitis with perforation. Diarrhea Screen for C. difficile ordered Acute appendicitis Perforated appendicitis Enteritis Status post appendectomy on 05/22/17 Improving clinically Drain in place with decreasing output Continue Cipro and metronidazole Continue pain treatments by mouth DVT prophylaxis SCDs Discharge planning Possible discharge tomorrow with outpatient surgical follow-up Drain removal possible as an outpatient Jamel Genao MD May 24, 2017 15:58
[2017-05-25] VITALS: BP 121/70; PULSE 56; RESP 22; TEMP 97.7; O2SAT 94
[2017-05-25 04:00] VITALS: BP 114/71; PULSE 61; RESP 20; TEMP 97.7; O2SAT 96
[2017-05-25] MEDS: metroNIDAZOLE 500 MG TAB PO SCH ×2 (05:52→15:06)
[2017-05-25 08:00] VITALS: BP 129/80; PULSE 63; RESP 17; TEMP 96.8; O2SAT 95
[2017-05-25] MEDS: CIPROFLOXACIN 500 MG TAB PO SCH (08:45)
[2017-05-25] MEDS: SODIUM CHLORIDE 0.9% FLUSH 10 ML FLUSH IV FLUSH SCH (08:45)
[2017-05-25] MEDS: PANTOPRAZOLE SOD 20 MG DELAYED RELEASE TAB PO SCH (08:45)
[2017-05-25] MEDS: DOCUSATE SODIUM 50 MG/SENNA 8.6 MG TAB PO SCH (08:45)
[2017-05-25 12:00] VITALS: BP 127/77; PULSE 66; RESP 17; TEMP 96.3; O2SAT 95
[2017-05-25] MEDS ORDERED: CIPR500T2 PO (14:16)
[2017-05-25] MEDS ORDERED: METR-1 PO (14:16)
[2017-05-25] MEDS ORDERED: LACTTAB8 PO (14:16)
--- NOTE | 2017-05-25 14:29 | HHI.PR ---
Subjective Subjective Notes Tolerating diet; has loose stools No nausea or emesis Objective Vitals/I&O Vital Signs Date Time Temp Pulse Resp B/P (MAP) Pulse Ox O2 Delivery O2 Flow Rate FiO2 05/25/17 12:00 96.3 66 17 127/77 (94) 95 05/24/17 17:16 Nasal Cannula 2.00 05/21/17 20:53 21 Labs Date/Time Source Procedure Growth Status 05/21/17 08:23 Fluid Peritoneal Fluid Gram Stain - Final Complete 05/21/17 08:23 Body Fluid Culture - Final Escherichia Coli Complete Narrative Exam JAJA output serosanguinous, 30 ml last 24 hrs A/P Assessment and Plan POD #4 lap appendectomy Stable Advance diet D/C JAJA drain today Ok for discharge; discussed with Dr. Genao No narcotics; use what he has at home. 14 days total antibiotics; home with cipro/flagyl Follow up my office next week Alphonso Sanz MD May 25, 2017 14:29
--- NOTE | 2017-05-25 17:17 | HHI.DS ---
Discharge Summary Admission Date May 20, 2017 at 19:19 Discharge Date: May 25, 2017 Admitting Diagnosis Small Bowel Infection vs appendicitis; N/V/D . (1) Nausea & vomiting ICD Code: R11.2 - Nausea with vomiting, unspecified Diagnosis: Secondary (2) Abdominal pain ICD Code: R10.9 - Unspecified abdominal pain Diagnosis: Secondary (3) Diarrhea ICD Code: R19.7 - Diarrhea, unspecified (4) Appendicitis ICD Code: K37 - Unspecified appendicitis Diagnosis: Principal (5) Enteritis ICD Code: K52.9 - Noninfective gastroenteritis and colitis, unspecified Diagnosis: Secondary Procedures Laparoscopic Appendectomy Brief History - From Admission 47 y/o male with a history of chronic neck, shoulder and lower back pain secondary to a work-related injury who presented to the ED for evaluation of severe abdominal pain accompanied by nausea, vomiting, and diarrhea. The patient is transferred from [place] ED for surgical evaluation (Dr. Sanz discussed case with ED physician) after an ABD/PELVIS CT showed inflammatory changes of the right lower quadrant adjacent to the cecum probably involving distal small bowel ileum with the appendix not seen as a separate entity with any certainty. The patient is seen in his hospital room. He reports his symptoms began on , 05/19/2017 with severe generalized abdominal pain followed by nausea, vomiting, and diarrhea with at least 5-6 episode of vomiting and 5-6 episodes of diarrhea per day since. He denies any hematochezia, melena, hematemesis, or black emesis. He reports having chills but denies any recorded fevers. He has been experiencing some dizziness as well. He denies chest pain, shortness of breath, palpitations, or syncope. The PRN morphine given here at the hospital has helped with his pain. He is currently rating the pain as a 6 out of 10 located in the lower abdominal right and left quadrants that is worse with light palpation. CBC/BMP: 05/23/17 0634 05/23/17 1315 Significant Findings Laboratory Tests Test 05/23/17 06:34 05/23/17 13:15 Red Blood Count 3.69 MIL/MM3 (4.50-5.90) Hemoglobin 11.1 GM/DL (13.0-17.0) Hematocrit 32.5 % (39.0-51.0) Platelet Count 89 TH/MM3 (150-450) Mean Platelet Volume 11.1 FL (7.0-11.0) Neutrophils (%) (Auto) 82.2 % (16.0-70.0) Lymphocytes # (Auto) 0.7 TH/MM3 (1.0-4.8) Platelet Estimate LOW (NORMAL) Blood Urea Nitrogen 6 MG/DL (7-18) Calcium Level 7.8 MG/DL (8.5-10.1) Potassium Level 3.2 MEQ/L (3.5-5.1) PE at Discharge GENERAL: This is a male in no apparent distress who appears older than stated age. CARDIOVASCULAR: Regular rate and rhythm without murmurs, gallops, or rubs. RESPIRATORY: Breath sounds with diminished air exchange, equal bilaterally. No wheezes, rales, or rhonchi. GASTROINTESTINAL: Hyperactive bowel sounds; abdomen soft, tender to light palpation in lower abdomen, dressing c/d/i, drain in place. Abd nondistended. No guarding. MUSCULOSKELETAL: Extremities without clubbing, cyanosis, or edema. No calf tenderness. NEUROLOGICAL: Awake and alert. Motor and sensory grossly within normal limits. Normal speech. Hospital Course Mr. Patricio is a 47-year-old male. He was admitted secondary to small bowel obstruction with enteritis including nausea vomiting and diarrhea. It was found that he had a perforated appendicitis. Surgery was performed. Patient has been recovering well. Drainage output is decreasing through time and drain is removed today. Patient is medically stable for discharge to home today. He will continue on Cipro and Flagyl for 14 days total which will be 10 days from discharge. Pt Condition on Discharge: Stable Discharge Disposition: Discharge Home Discharge Time: <= 30 minutes Discharge Instructions DIET: Follow Instructions for: As Tolerated, No Restrictions Activities you can perform: Regular-No Restrictions Follow up Referrals: PCP Follow-up - 1 Week Surgical - 2 Weeks New Medications: Ciprofloxacin (Ciprofloxacin) 500 Mg Tab 500 MG PO BID for Infection, #20 TAB 0 Refills Lactobacillus Acidophilus (Lactobacillus Acidophilus) 1 Billion Cell Tab 1 TAB PO TIDAC for Nutritional Supplement, #30 TAB 0 Refills Metronidazole (Flagyl) 500 Mg Tab 500 MG PO TID for Infection, #30 TAB 0 Refills Continued Medications: Hydrocodone-Acetaminophen (Lortab) 10-325 Mg Tab 1 TAB PO Q6H PRN for PAIN, TAB 0 Refills Jamel Genao MD May 25, 2017 17:17
== END 2017-05-25 16:30 | disposition home or self-care (01) | DRG 340 ==
LOC: PHED 17:34 → PHEDA 19:19 → OBSVTOIN 19:19 → N07B 22:14
PROVIDERS: ADMIT Hospitalist; ATTEND Hospitalist
PROC: 0DTJ4ZZ Resection of Appendix, Percutaneous Endoscopic Approach (ICD-10-PCS; principal; 2017-05-21 07:48)
DX: K35.3 Acute appendicitis with localized peritonitis (principal); F17.210 Nicotine dependence, cigarettes, uncomplicated; M54.5 Low back pain; G89.29 Other chronic pain; Z83.3 Family history of diabetes mellitus; Z82.3 Family history of stroke; M25.511 Pain in right shoulder; M54.2 Cervicalgia; F12.90 Cannabis use, unspecified, uncomplicated
CPT/HCPCS: 74177; 80048; 80053; 80307; 81001; 83605; 83690; 84132; 85025; 87070; 87077; 87186; 87205; 88304; 93005; 96361; 96374; 96375; J0131; J0330; J0744; J1100; J1170; J1650; J1885; J2250; J2270; J2370; J2405; J2710; J3010; J3480; J7030; J7120; Q9967